=== PATIENT | male | born 1990 | race African-American/Black ===

== ENCOUNTER 2017-06-12 09:55 | Emergency (ER) | payer OTHER ==
[~2017-06-12] VITALS: Ht 172.7 cm; Wt 72.6 kg
[~2017-06-12 09:55] MED LIST: ALBU17I INH; ALBU2.5I NEB; NEBUMIS6; PRED20 PO; Z.0.NO CURRENT MEDS
[2017-06-12 10:11] VITALS: BP 130/60; PULSE 57; RESP 16; TEMP 97.9; O2SAT 99
[2017-06-12] MEDS ORDERED: ALBU6.7H INH (10:24)
--- NOTE | 2017-06-12 10:26 | PD ---
HPI Chief Complaint: Laceration/Skin Injury Time Seen by Provider: 10:17 Travel History International Travel<30 days: No Contact w/Intl Traveler<30days: No Traveled to known affect area: No History of Present Illness HPI 26yo M with PMH of asthma here with c/o left thumb injury. He was cutting chicken at [employer] and sliced off the distal part of his nail in his left thumb. There is bleeding in the nail bed that is now exposed. Denies any other injury. Denies any focal weakness or numbness. Does not know last tetanus. PFSH Past Medical History Asthma: Yes Respiratory: Yes (asthma) Social History Alcohol Use: No Tobacco Use: No Substance Use: No Allergies-Medications (Allergen,Severity, Reaction): Coded Allergies: peanut (Verified Allergy, Severe, throat swells, 06/12/17) Fish Containing Products (Unverified Allergy, Intermediate, THROAT ITCHES , 06/12/17) shrimp (Verified Allergy, Intermediate, skin rash, 06/12/17) Reported Meds & Prescriptions Reported Meds & Active Scripts Active Tylenol (Acetaminophen) 325 Mg Tab 650 Mg PO Q6H PRN Reported Proventil Hfa 6.7 GM Inh (Albuterol Sulfate) 90 Mcg/Act Aer 2 Puff INH Q4-6H PRN Review of Systems Except as stated in HPI: all other systems reviewed are Neg Physical Exam Narrative GENERAL: 26yo M in mild distress. SKIN: Focused skin assessment warm/dry. HEAD: Atraumatic. Normocephalic. MUSCULOSKELETAL: Left hand: +avulsion of distal nail and part of the nail bed in distal left thumb. +Active bleeding. FROM in left thumb in DP and PIP joint. Radial pulse 2+. Sensation intact. NEUROLOGICAL: Awake and alert. No obvious cranial nerve deficits. Motor grossly within normal limits. Normal speech. PSYCHIATRIC: Appropriate mood and affect; insight and judgment normal. Data Data Last Documented VS Vital Signs Date Time Temp Pulse Resp B/P (MAP) Pulse Ox O2 Delivery O2 Flow Rate FiO2 06/12/17 10:11 97.9 57 16 130/60 (83) 99 Orders Orders Lidocaine 1% Inj (Xylocaine 1% Inj) (06/12/17 10:30) Gelatin 12 Mm/7 Mm Top (Gelfoam 12 Mm/7 (06/12/17 10:30) Tetanus/Diphtheria Tox Adult (Tetanus/Di (06/12/17 10:30) Acetaminophen (Tylenol) (06/12/17 10:30) MDM Medical Decision Making Medical Screen Exam Complete: Yes Emergency Medical Condition: Yes Differential Diagnosis Left thumb avulsion injury Narrative Course 26yo M with left thumb avulsion from a knife at work today. Pt was cutting raw chicken when he sliced off his left distal nail and part of the nail bed. Offered digital block but pt wanted to try to stop the bleeding without it first. Finger turnique used and left finger irrigated with normal saline. Bleeding was stopped with cauterization and then gel foam used on top of the avulsion. Pt tolerated procedure well. Pt given acetaminophen and updated on tetanus. Pt observed in the ED with no more bleeding. Pt to follow with hand clinic as outpatient. Procedures Procedure Narrative Left thumb avulsion: Finger turnique was used to stop the bleeding and visualize the wound. Left thumb irrigated with bottle of normal saline. Small distal bleeding was stopped with cauterization. Gel foam place on top of avulsion and wrapped with xeroform and then sterile gauze. Pt tolerated procedure well. Diagnosis Primary Impression: Avulsion, finger tip Qualified Codes: S61.209A - Unspecified open wound of unspecified finger without damage to nail, initial encounter Referrals: Alex Morley III, MD call for appointment Finger tip avulsion Patient Instructions: General Instructions Departure Forms: Tests/Procedures Additional Instructions: Please follow up with hand clinic in 2-3 days. Return to the ED if symptoms worsen. Med/Other Pt SpecificInfo: Prescription(s) given Scripts Cephalexin (Keflex) 500 Mg Cap 500 MG PO Q12H for Infection for 7 Days, #14 CAP 0 Refills Prov: JaylinVeronica DO 06/12/17 Acetaminophen (Tylenol) 325 Mg Tab 650 MG PO Q6H Y for PAIN SCALE 1 TO 4, #20 TAB 0 Refills Prov: Veronica Mosqueda DO 06/12/17 Disposition: 01 DISCHARGE HOME Condition: Stable Veronica Mosqueda DO Jun 12, 2017 10:26
[2017-06-12] MEDS ORDERED: LIDOCAINE HCL 1% 20 ML VIAL INFIL ONE (10:30)
[2017-06-12] MEDS ORDERED: ACETAMINOPHEN 325 MG TAB PO ONE (10:30)
[2017-06-12] MEDS ORDERED: TETANUS/DIPHTHERIA TOXOID ADULT 0.5 ML VIAL IM ONE (10:30)
[2017-06-12] MEDS ORDERED: GELATIN 12 MM/7 MM FOAM TOPICAL ONE (10:30)
[2017-06-12] MEDS ORDERED: TYLE325T PO (10:53)
[2017-06-12] MEDS ORDERED: CEPH-460 PO (11:07)
== END 2017-06-12 11:15 | disposition home or self-care (01) ==
LOC: PHED 09:55
DX: S61.112A Laceration without foreign body of left thumb with damage to nail, initial encounter (principal); W26.0XXA Contact with knife, initial encounter; Y99.0 Civilian activity done for income or pay; J45.909 Unspecified asthma, uncomplicated; Z79.899 Other long term (current) drug therapy; Z23 Encounter for immunization
CPT/HCPCS: 12001; 90471; 90714